=== PATIENT | male | born 1995 | race Caucasian/White ===

== ENCOUNTER 2021-02-24 20:01 | Emergency (ER) | payer SELFPAY ==
[2021-02-24 20:06] VITALS: BP 158/77; PULSE 88; RESP 16; TEMP 36.6; O2SAT 97; BMI 25.0
--- NOTE | 2021-02-24 22:27 | PC.NURSE ---
CALLED, NO ANSWER IN TRIAGE
== END 2021-02-24 22:52 | disposition left against medical advice (07) ==
LOC: HO.ED 22:47
PROVIDERS: Emergency Provider Emergency Medicine; PCP Internal Medicine
DX: Z04.1 Encounter for examination and observation following transport accident (principal); H93.12 Tinnitus, left ear
CPT/HCPCS: 99281; 99282